=== PATIENT | male | born 1965 | race Caucasian/White ===

== ENCOUNTER 2018-01-31 13:31 | Observation (INO) ==
[2018-01-31] MEDS ORDERED: IOPAMIDOL 100 ML BOTTLE IV ONE (13:32)
[2018-01-31] MEDS ORDERED: PANTOPRAZOLE 40 MG VIAL IV ONE (14:03)
[2018-01-31] MEDS ORDERED: 0.9 % SODIUM CHLORIDE 1,000 ML IV ONE (14:03)
[2018-01-31] MEDS ORDERED: 0.9 % SODIUM CHLORIDE 250 ML IV SCH ×2 (14:15→19:41)
[2018-01-31 15:20] LABS: ALT/SGPT 13 U/l (0-40); Albumin 4.4 gm/dL (3.2-5.2); Albumin/Globulin Ratio 1.9 (1.0-2.3); Alkaline Phosphatase 87 U/L (39-117); Blood Urea Nitrogen 16 mg/dl (6-20)
[2018-01-31 15:28] LABS: Ferritin 1.8 ng/ml (30-400)
[2018-01-31 15:36] LABS: Basophils # (Auto) 0 K/mcL (0.0-0.3); Basophils % (Auto) 0 % (0.0-2.0); Eosinophils # (Auto) 0.2 K/mcL (0.0-0.7); Eosinophils % (Auto) 3.3 % (0.0-7.0); Granulocytes % (Auto) 60.2 % (38.0-78.0); Lymphocytes # (Auto) 1.2 K/mcL (1.5-4.8); Lymphocytes % (Auto) 26.8 % (15.5-49.0); Mean Cell Volume 53.3 fL (80.0-100.0); Mean Corpuscular HGB Conc 28.3 g/dL (31.0-36.0); Mean Corpuscular Hemoglobin 15.1 pg (26.0-34.0); Monocytes # (Auto) 0.4 K/mcL (0.1-0.9); Monocytes % (Auto) 9.7 % (1.0-12.0); Platelet Count 380 K/mcL (140-440); RBC 3.67 M/mcL (4.50-5.90); Red Cell Distribution Width 22.4 % (11.5-14.5)
--- NOTE | 2018-01-31 18:04 | Emergency Department Note ---
General Adult HPI - General Chief complaint: Recheck/Abnormal Lab/Rx Stated complaint: Abnormal labs Time Seen by Provider: 01/31/18 13:38 Source: patient Mode of arrival: ambulatory Limitations: no limitations - History of Present Illness HPI Narrative: 53-year-old male who was sent over by the [facility] clinic for hemoglobin 6. He has had chronic iron deficiency anemia which he believes is from his hemorrhoids which are very active although he has not had any blood in his stool for about 3 -4 days. He is having some shortness of breath and dyspnea on exertion. Denies headache syncope or other symptoms though. He is very active. Denies melena. He has been taking quite a bit of ibuprofen for C-spine issues but chiropractic has been helping with that and he has been decreasing although he reports taking ibuprofen 3-4 times per day in recent weeks. Has had previous upper endoscopy and lower endoscopy with issues of strong gag reflex so difficulties with sedation. These were probably 10-15 years ago and at [facility] however the patient is unsure. - Related Data Home Medications Medication Instructions Recorded Confirmed Cyclobenzaprine [Flexeril] 10 mg PO TIDP PRN 01/31/18 01/31/18 Ibuprofen 800 mg PO TID 01/31/18 01/31/18 Allergies Allergy/AdvReac Type Severity Reaction Status Date / Time nabumetone [From Relafen] AdvReac Mild Gastrointestinal Verified 01/31/18 13:36 Upset Review of Systems All systems ED: reviewed and negative except as stated. Past Medical History - Past Medical History Attestation: Yes: The following information was validated with the patient. Medical history: Reports: kidney stones, other (Irritable bowel syndrome, hemorrhoids, iron deficiency anemia) Surgical history ED: Reports: other (Upper and lower endoscopy, thumb tip amputation) Family history: Reports: other (States multiple family members also have trouble with hemorrhoids) - Social History smoking status: Former smoker Alcohol use: Reports: Occasionally Physical Exam Normocephalic atraumatic. Conjunctive clear sclerae nonicteric. No nasal discharge or congestion oropharynx pink and moist. Posterior pharynx is clear. Neck is supple without lymphadenopathy or thyromegaly. Heart is regular rate and rhythm no murmur appreciated. Lungs are clear to auscultation bilaterally without wheezes rales rhonchi or respiratory distress. Abdomen soft nontender nondistended. No CVA tenderness peritoneal signs or guarding. No rigidity. Rectal exam shows circumferential external hemorrhoids not active. He has adequate rectal tone. I do not see a fissure. Internal digital exam is difficult to sort out whether there is an internal hemorrhoid as there is some stool in the vault . Exam was nontender. When he wiped there is pink blood on the tissue -Hemoccult positive . no pedal edema. +2 radial pulse. Alert oriented able to answer questions appropriately. Able to sit for my exam and walk around without any difficulty. Limitations: no limitations Course Vital Signs Temperature 98.1 F 01/31/18 13:32 Pulse Rate 95 H 01/31/18 13:32 Respiratory Rate 16 01/31/18 13:32 Blood Pressure 144/77 01/31/18 13:32 Pulse Oximetry (%) 99 01/31/18 13:32 Temperature 98.8 F 02/01/18 03:38 Pulse Rate 70 02/01/18 08:17 Respiratory Rate 12 02/01/18 08:17 Blood Pressure 130/83 02/01/18 08:17 Pulse Oximetry (%) 100 02/01/18 08:17 Medical Decision Making - Lab Data Lab results reviewed: Yes I reviewed the patient's lab results. Result diagrams: 02/01/18 03:38 02/01/18 03:38 Lab Results 01/31/18 01/31/18 01/31/18 Range/Units 14:15 14:15 14:15 WBC 4.6 (4.5-11.0) K/mcL RBC 3.67 L (4.50-5.90) M/mcL Hgb 5.5 L* (13.5-16.5) g/dL Hct 19.5 L* (41.0-55.0) % POC Hct 20.0 L* (41.0-55.0) % MCV 53.3 L (80.0-100.0) fL MCH 15.1 L (26.0-34.0) pg MCHC 28.3 L (31.0-36.0) g/dL RDW 22.4 H (11.5-14.5) % Plt Count 380 (140-440) K/mcL MPV 8.2 (7.4-10.4) fL Gran % 60.2 (38.0-78.0) % Lymph % (Auto) 26.8 (15.5-49.0) % Coleman % (Auto) 9.7 (1.0-12.0) % Eos % (Auto) 3.3 (0.0-7.0) % Baso % (Auto) 0 (0.0-2.0) % Gran # 2.8 (1.8-8.0) K/mcL Lymph # (Auto) 1.2 L (1.5-4.8) K/mcL Coleman # (Auto) 0.4 (0.1-0.9) K/mcL Eos # (Auto) 0.2 (0.0-0.7) K/mcL Baso # (Auto) 0 (0.0-0.3) K/mcL Differential Comment Few nrbcs on scan POC PT 11.5 L (11.9-14.5) sec POC INR 1.0 (0.9-1.2) VBG Lactic Acid (0.5-2.2) mmol/L POC Sodium 139 (133-145) mmol/L Sodium 137 (133-145) mmol/L POC Potassium 3.5 (3.3-5.1) mmol/L Potassium 3.4 (3.3-5.1) mmol/L POC Chloride 103 (96-108) mmol/L Chloride 101 (96-108) mmol/L Carbon Dioxide 23 (22-30) mmol/L POC Total CO2 23 (22-30) mmol/L Anion Gap 13.0 (8-16) POC BUN 17 (6-20) mg/dl BUN 16 (6-20) mg/dl Creatinine 0.9 (0.7-1.2) mg/dl POC Creatinine 1.0 (0.7-1.2) mg/dl GFR Calculation 97 Glucose 96 (70-105) mg/dL POC Glucose 97 (70-105) mg/dL Calcium 8.5 L (8.6-10.4) mg/dl POC WB Ioniz Calcium 1.16 (1.16-1.32) mmol/L Ferritin 1.8 L (30-400) ng/ml Total Bilirubin 0.3 (0.0-1.0) mg/dL AST 16 (0-37) U/l ALT 13 (0-40) U/l Alkaline Phosphatase 87 (39-117) U/L Total Protein 6.7 (5.9-8.4) gm/dL Albumin 4.4 (3.2-5.2) gm/dL Globulin 2.3 (2.2-3.7) gm/dL Albumin/Globulin Ratio 1.9 (1.0-2.3) 01/31/18 Range/Units 14:15 WBC (4.5-11.0) K/mcL RBC (4.50-5.90) M/mcL Hgb (13.5-16.5) g/dL Hct (41.0-55.0) % POC Hct (41.0-55.0) % MCV (80.0-100.0) fL MCH (26.0-34.0) pg MCHC (31.0-36.0) g/dL RDW (11.5-14.5) % Plt Count (140-440) K/mcL MPV (7.4-10.4) fL Gran % (38.0-78.0) % Lymph % (Auto) (15.5-49.0) % Coleman % (Auto) (1.0-12.0) % Eos % (Auto) (0.0-7.0) % Baso % (Auto) (0.0-2.0) % Gran # (1.8-8.0) K/mcL Lymph # (Auto) (1.5-4.8) K/mcL Coleman # (Auto) (0.1-0.9) K/mcL Eos # (Auto) (0.0-0.7) K/mcL Baso # (Auto) (0.0-0.3) K/mcL Differential Comment POC PT (11.9-14.5) sec POC INR (0.9-1.2) VBG Lactic Acid 1.1 (0.5-2.2) mmol/L POC Sodium (133-145) mmol/L Sodium (133-145) mmol/L POC Potassium (3.3-5.1) mmol/L Potassium (3.3-5.1) mmol/L POC Chloride (96-108) mmol/L Chloride (96-108) mmol/L Carbon Dioxide (22-30) mmol/L POC Total CO2 (22-30) mmol/L Anion Gap (8-16) POC BUN (6-20) mg/dl BUN (6-20) mg/dl Creatinine (0.7-1.2) mg/dl POC Creatinine (0.7-1.2) mg/dl GFR Calculation Glucose (70-105) mg/dL POC Glucose (70-105) mg/dL Calcium (8.6-10.4) mg/dl POC WB Ioniz Calcium (1.16-1.32) mmol/L Ferritin (30-400) ng/ml Total Bilirubin (0.0-1.0) mg/dL AST (0-37) U/l ALT (0-40) U/l Alkaline Phosphatase (39-117) U/L Total Protein (5.9-8.4) gm/dL Albumin (3.2-5.2) gm/dL Globulin (2.2-3.7) gm/dL Albumin/Globulin Ratio (1.0-2.3) Celiac panel is ordered at the request of Dr. Downey results will be pending - Radiology Data Radiology results reviewed: Yes I reviewed the patient's radiology results. CTA of the abdomen pelvis was done for GI bleed. This was read as negative and no acute causes found for that. Disposition Pt seen by BLADE OPERATOR/PA only: No Clinical Impression: Lower GI bleed, Iron deficiency anemia due to chronic blood loss Hemorrhoids Qualifiers: Hemorrhoid type: unspecified Qualified Code(s): K64.9 - Unspecified hemorrhoids Summary: After initial exam and interview workup was ordered with laboratory and CT scan. IV fluids started along with Protonix Laboratory showed hemoglobin of 5.5 and so 6 units of packed red blood cells are ordered. 4 to give and 2 to hold. Transfusion initiated Discussed the situation with Dr. Downey, flat bed knitter, who agreed to consult on the patient in the morning-recommended a celiac panel which is ordered. Plan for upper endoscopy in the morning I then discussed the situation with Dr. Ursula Sanchez the hospitalist who agreed to accept patient in transfer for further care Disposition: Xfer As Inpt ([facility]) Condition: Serious
--- NOTE | 2018-01-31 18:08 | Cat Scan Report ---
CLINICAL INFORMATION: Low hemoglobin evaluate for GI bleed COMPARISON: None. TECHNIQUE: Following negative volumen contrast, 100 cc of Isovue-370 were injected intravenously, and 20 and 65 seconds later, 0.625 mm helical slices were obtained from the mid heart through the subtrochanteric regions. Following reconstruction, 2.5 mm sagittal, coronal and axial reformatted images were processed and reviewed at bone, lung and soft tissue windows. Coronal MIP and VR images were obtained in both arterial and portal venous phases The exam was performed using radiation dose optimization techniques including, but not limited to, automated exposure control, adjustment of the mA and/or kV according to patient size and use of iterative reconstruction technique. FINDINGS: Abdominal aorta is normal in contour and caliber with minimal scattered chronic plaque. The celiac, SMA and DOMINIC and branches are normal in contour and caliber and are well opacified. No evidence of angiodysplasia, tumor or other cause identified for account for GI blood loss. The renal, common iliac, external iliac and internal iliac arteries are all unremarkable. Lung bases show no abnormality - no effusion. The visualized heart is normal. Images through the abdomen show the gallbladder and bile ducts, liver, both adrenal glands, spleen and pancreas are normal. There are 3-4 nonobstructing stones inferior calyces of the left kidney ranging up to 5 mm. Right kidney is normal. There is no free air, free fluid or adenopathy. Images through the pelvis show urinary bladder, prostate and seminal vesicles are normal. Stomach, small and large bowel are normal with exception of a few sigmoid diverticuli. Bone windows show no osseous abnormality IMPRESSION: 1. No pathology identified to account for GI blood loss. 2. 3-4 nonobstructing stones, ranging up to 5 mm, in the mid and inferior calyces of the left kidney. Interpreted and Authenticated by: Dusty Lee 01/31/18
[2018-01-31] MEDS: 0.9 % SODIUM CHLORIDE 10 ML SYRINGE IV SCH (19:05)
--- NOTE | 2018-01-31 19:06 | Internal Med History&Physical ---
Medical - H&P: HPI Patient information: Note initiated : 01/31/18 at 7:04 pm Service Date, if different from initiated Date: [] Patient: Pierce Doll 53 y/o M admitted on for Abnormal labs. Chief complaint: Abnormal labs/Critical anemia History of present illness: The patient's 53-year-old male who presents due to abnormal labs. He established with a new primary care provider yesterday, was found to have a hemoglobin of 6.4 on labs. Instructed the emergency department. Upon arrival at this facility, his hemoglobin was 5.5. The patient states she was diagnosed with anemia about 15 years ago. He had been on iron supplementation the past, but has not taken iron supplements for many years.He's had colonoscopy twice as well as EGD, the only findings he was reported was hemorrhoids. Patient does have significant external hemorrhoids with frequent bleeding. He would estimate he has hemorrhoidal bleeding from 2/3-3/4 of his bowel movements. At times he consulted on the commode for 15-20 minutes with ongoing blood loss after a bowel movement. That usually tapers off and stops, then resume after further BM's. At times he will have bowel movements without associated hemorrhoidal bleeding. Patient also has been using nonsteroidals for neck pain. He uses ibuprofen on a daily basis. Recently he was using at up to 3 times a day at a dose of 800 mg. He denies any abdominal pain, pain with meals, nausea, vomiting, hematemesis. He also denies any melena. Stools are brown, bleeding occurs after bowel movements. No history of GI upset after eating except for occasional heartburn, which causes a burning sensation in the upper chest/back of the throat. Occasionally gets an acidic taste in the posterior pharynx. Patient has noted recently some dyspnea with exertion, felt is related to decreased cardiovascular fitness. However he is generally quite active, working in a mill, hunting and camping during the king. He does not experience any chest pain or tightness with activity. No history of coronary disease. No history of cerebrovascular disease. No history of kidney disease except for nephrolithiasis. No history of asthma, emphysema or other lung problems. No history of thyroid disease, no history of diabetes, no history of abnormal clotting disorders. Patient's being hospitalized, and continue transfusion, will be evaluated by gastroenterology tomorrow. 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 Smoking status: Former smoker (Quit 16 months ago) Alcohol use: occasionally Medical - H&P: Meds Home Medications Medication Instructions Recorded Confirmed Type Ibuprofen 800 mg PO TID 01/31/18 01/31/18 History Allergies Allergy/AdvReac Type Severity Reaction Status Date / Time nabumetone [From Relafen] AdvReac Mild Gastrointestinal Verified 01/31/18 13:36 Upset Medical - H&P: Exam - Constitutional Vitals: Temp Pulse Resp BP Pulse Ox 98.1 F 70 18 138/94 98 01/31/18 13:32 01/31/18 18:31 01/31/18 18:31 01/31/18 18:31 01/31/18 18:31 General appearance: average body habitus, cooperative, no acute distress - Head Head exam: Present: atraumatic, normal inspection, normocephalic - Eye Eye exam: Present: normal appearance, PERRL. Absent: conjunctival injection - ENT ENT exam: Present: mucous membranes moist, normal oropharynx - Neck Neck exam: Present: full ROM. Absent: lymphadenopathy, meningismus, thyromegaly - Respiratory Respiratory exam: Present: normal respiratory exam. Absent: accessory muscle use, rales, rhonchi, wheezes - Cardiovascular Cardiovascular exam: Present: normal rate and rhythm. Absent: diastolic murmur , rubs, systolic murmur - Expanded Cardiovascular Exam Peripheral pulses: 2+: carotid (L), carotid (R) - GI/Abdominal GI/Abdominal exam: Present: soft, hyperactive bowel sounds (s/p PO contrast). Absent: distended, guarding, organomegaly, rebound, tenderness - Rectal Rectal exam: Present: hemorrhoids (external, as per ED exam) - Extremities Exam Extremities exam: Present: full ROM, normal inspection. Absent: calf tenderness , joint swelling, pedal edema - Neurological Exam Neurological exam: Present: alert, CN II-XII intact, oriented X3. Absent: motor sensory deficit - Psychiatric Psychiatric exam: Present: normal affect, normal mood - Skin Skin exam: Present: dry, normal color, warm. Absent: diaphoretic, mottled, pallor Medical - H&P: Reslt - Labs CBC & Chem 7: 01/31/18 14:15 01/31/18 14:15 Labs: Short CBC 01/31/18 Range/Units 14:15 WBC 4.6 (4.5-11.0) K/mcL Hgb 5.5 L* (13.5-16.5) g/dL Hct 19.5 L* (41.0-55.0) % Plt Count 380 (140-440) K/mcL BMP 01/31/18 14:15 Sodium 137 Potassium 3.4 Chloride 101 Carbon Dioxide 23 BUN 16 Creatinine 0.9 Glucose 96 Calcium 8.5 L Liver Function 01/31/18 Range/Units 14:15 Total Bilirubin 0.3 (0.0-1.0) mg/dL AST 16 (0-37) U/l ALT 13 (0-40) U/l Alkaline Phosphatase 87 (39-117) U/L Albumin 4.4 (3.2-5.2) gm/dL - Impressions CTAP with contrast, reviewed IMPRESSION: 1. No pathology identified to account for GI blood loss. 2. 3-4 nonobstructing stones, ranging up to 5 mm, in the mid and inferior calyces of the left kidney. Medical - H&P: A/P (1) Iron deficiency anemia due to chronic blood loss Current visit: Yes Status: Acute - Narrative A/P Narrative: 53-year-old male with a history of iron deficiency anemia, not on iron supplementation, with some ongoing blood loss due to hemorrhoids presents with critical anemia. Iron deficiency anemia. Ferritin is low, MCV is in the 50s, consistent iron deficiency. Differential includes blood loss anemia with ongoing blood loss from hemorrhoids, though this is a significantly low hemoglobin to be associated with hemorrhoidal bleeding. Patient does use nonsteroidals, he could be having occult upper GI bleeding from gastritis/peptic ulcer disease without darcy melena over time that may have also produced iron deficiency anemia. Chronic blood loss due to other lesions also remain a possibility, as do malabsorption syndromes. He's apparently had negative EGD as well as colonoscopy 2 in the past (except for the findings of hemorrhoids). He is tolerating his anemia well, pulse and blood pressure are normal. He has good exercise tolerance in spite of hemoglobin now in the 5 range, though he has been experiencing some dyspnea on exertion. Plan: Hospitalized observation Transfuse 4 units of packed cells, recheck, consider further transfusion depending upon response GI consultation, Dr. Abreu called by the emergency department, will see the patient tomorrow, as of now plans EGD Celiac panel has been ordered Regular diet this evening, nothing by mouth after midnight PPI, given his nonsteroidal use We will attempt to obtain old records on prior endoscopies from [facility] Prophylaxis: No DVT prophylaxis needed, he is ambulatory, risk score is 1. Patient will be on Protonix until he undergoes endoscopy. CODE STATUS full code.
[2018-01-31] MEDS ORDERED: ACETAMINOPHEN 325 MG TABLET PO PRN (19:41)
[2018-01-31] MEDS ORDERED: ONDANSETRON 4 MG/2 ML VIAL IV PRN (19:41)
[2018-02-01] MEDS: PANTOPRAZOLE 40 MG VIAL IV SCH ×2 (00:56→10:06)
[2018-02-01 05:36] LABS: Blood Urea Nitrogen 10 mg/dl (6-20)
[2018-02-01 05:53] LABS: Basophils # (Auto) 0 K/mcL (0.0-0.3); Basophils % (Auto) 0 % (0.0-2.0); Eosinophils # (Auto) 0.3 K/mcL (0.0-0.7); Eosinophils % (Auto) 5.1 % (0.0-7.0); Granulocytes % (Auto) 63.4 % (38.0-78.0); Lymphocytes # (Auto) 1.1 K/mcL (1.5-4.8); Lymphocytes % (Auto) 21.9 % (15.5-49.0); Mean Corpuscular HGB Conc 30.3 g/dL (31.0-36.0); Mean Corpuscular Hemoglobin 19.4 pg (26.0-34.0); Monocytes # (Auto) 0.5 K/mcL (0.1-0.9); Monocytes % (Auto) 9.6 % (1.0-12.0); Platelet Count 334 K/mcL (140-440); Red Cell Distribution Width 34.5 % (11.5-14.5)
[2018-02-01] MEDS: 0.9 % SODIUM CHLORIDE 10 ML SYRINGE IV SCH ×2 (06:59→13:19)
[2018-02-01] MEDS ORDERED: KETAMINE 10 MG/ML ML IV PRN (07:17)
[2018-02-01] MEDS ORDERED: MIDAZOLAM 2 MG/2 ML VIAL ONE (07:27)
[2018-02-01] MEDS ORDERED: PROPOFOL 0 ML IV ONE (07:27)
[2018-02-01] MEDS ORDERED: PROPOFOL 20 ML IV ONE (07:28)
[2018-02-01] MEDS ORDERED: MIDAZOLAM 2 MG/2 ML VIAL IV SCH (07:30)
[2018-02-01] MEDS ORDERED: PROPOFOL 200 MG/20 ML VIAL IV SCH (07:30)
[2018-02-01] MEDS ORDERED: IRON SUCROSE COMPLEX 400 MG in 0.9 % SODIUM CHLORIDE 250 ML IV ONE (10:00)
--- NOTE | 2018-02-01 13:53 | Discharge Summary ---
Medical - DS: Prov Patient information: Note initiated : 02/01/18 at 1:51 pm Service Date, if different from initiated Date: [] Patient: Pierce Doll 53 y/o M admitted on 01/31/18 for Abnormal labs. Chief Complaint: [] Date of admission: 01/31/18 19:28 Discharge date: 02/01/18 Primary care physician: Harriett Morales Admitting clinician: Ursula Richardson Consults: 01/31/18 17:57 Consult to Physician [CONS] Stat Comment: Consulting Provider: Dusty Abreu Reason For Exam: Physician to Consult 01/31/18 18:05 Consult to Physician [CONS] Stat Comment: Consulting Provider: Ursula Richardson Reason For Exam: Physician to Consult Discharging clinician: Ursula Richardson Medical - DS: Meds - Discharge Medications Active and Home Medications: Home Medications Cyclobenzaprine [Flexeril] 10 mg PO TIDP PRN 01/31/18 [History Confirmed Last Taken 01/30/18 21:00] Ibuprofen 800 mg PO TID 01/31/18 [History Confirmed 01/31/18 Last Taken 18:00] Medical - DS: Hosp Hospital course: 01/31 The patient's 53-year-old male who presents due to abnormal labs. He established with a new primary care provider yesterday, was found to have a hemoglobin of 6.4 on labs. Instructed the emergency department. Upon arrival at this facility, his hemoglobin was 5.5. The patient states she was diagnosed with anemia about 15 years ago. He had been on iron supplementation the past, but has not taken iron supplements for many years.He's had colonoscopy twice as well as EGD, the only findings he was reported was hemorrhoids. Patient does have significant external hemorrhoids with frequent bleeding. He would estimate he has hemorrhoidal bleeding from 2/3-3/4 of his bowel movements. At times he consulted on the commode for 15-20 minutes with ongoing blood loss after a bowel movement. That usually tapers off and stops, then resume after further BM's. At times he will have bowel movements without associated hemorrhoidal bleeding. Patient also has been using nonsteroidals for neck pain. He uses ibuprofen on a daily basis. Recently he was using at up to 3 times a day at a dose of 800 mg. He denies any abdominal pain, pain with meals, nausea, vomiting, hematemesis. He also denies any melena. Stools are brown, bleeding occurs after bowel movements. No history of GI upset after eating except for occasional heartburn, which causes a burning sensation in the upper chest/back of the throat. Occasionally gets an acidic taste in the posterior pharynx. Patient has noted recently some dyspnea with exertion, felt is related to decreased cardiovascular fitness. However he is generally quite active, working in a mill, hunting and camping during the king. He does not experience any chest pain or tightness with activity. No history of coronary disease. No history of cerebrovascular disease. No history of kidney disease except for nephrolithiasis. No history of asthma, emphysema or other lung problems. No history of thyroid disease, no history of diabetes, no history of abnormal clotting disorders. Patient's being hospitalized, and continue transfusion, will be evaluated by gastroenterology tomorrow. 02/01 He received 4 units of packed red blood cells overnight and his hemoglobin arose to 8.3. He tolerated the transfusions well. Patient underwent EGD by Dr. Abreu on the morning of discharge. No significant findings were observed. Following endoscopy, he subsequently received Venofer, 400 mg intravenously as iron supplementation. Dr. Abreu plans to perform colonoscopy within the next week to evaluate for lesions other than hemorrhoids. If no further lesions are found, this will be followed by capsule endoscopy, and if negative, he will be referred for surgical treatment of his hemorrhoids. It may be that external hemorrhoids are the cause of his severe iron deficiency anemia. By the afternoon of discharge, the patient received blood, and received intravenous iron, had had EGD, all without complications. He was discharged to home. Discharge diagnosis: Severe iron deficiency anemia due to chronic blood loss Medical - DS: Exam - Constitutional Vitals: Vital Signs Temp Pulse Pulse Resp BP BP Pulse Ox 02/01/18 11:46 98.9 F 16 123/70 99 02/01/18 11:22 123/70 02/01/18 09:46 117/90 02/01/18 09:31 109/68 02/01/18 09:16 108/73 02/01/18 09:01 109/63 02/01/18 08:46 104/56 02/01/18 08:33 61 111/57 96 02/01/18 08:17 70 12 130/83 100 02/01/18 07:20 69 14 114/57 98 02/01/18 03:38 98.8 F 59 L 20 121/66 97 02/01/18 01:09 112/71 02/01/18 00:10 99.3 F H 18 112/71 96 01/31/18 23:38 99.9 F H 74 18 124/70 97 01/31/18 23:35 99.9 F H 18 124/70 98 01/31/18 23:25 99.7 F H 18 126/68 99 01/31/18 23:09 80 126/68 98 01/31/18 21:19 98 01/31/18 21:01 72 131/91 98 01/31/18 21:00 99.6 F H 18 131/91 99 01/31/18 20:53 73 141/77 98 01/31/18 20:50 99.2 F H 18 141/77 99 01/31/18 20:35 132/84 01/31/18 20:30 99.7 F H 18 132/84 99 01/31/18 19:49 98.8 F 72 16 129/88 98 01/31/18 19:42 71 129/88 99 01/31/18 19:41 98.8 F 16 129/88 98 01/31/18 19:30 98.1 F 67 16 142/86 99 01/31/18 19:01 67 16 142/86 99 01/31/18 18:31 70 18 138/94 98 01/31/18 18:26 87 19 149/97 100 01/31/18 18:10 70 19 130/81 99 01/31/18 18:01 71 18 135/88 98 01/31/18 17:31 74 16 131/81 99 01/31/18 17:17 71 14 100 01/31/18 17:01 68 15 141/80 100 01/31/18 16:50 65 20 151/82 99 01/31/18 16:34 75 18 128/88 100 01/31/18 14:55 77 16 100 01/31/18 14:36 82 21 98 01/31/18 14:31 80 14 120/70 98 01/31/18 14:08 88 143/84 98 General: A bit drowsy after endoscopy Chest: Clear Cardiovascular: Regular, no edema Abdomen: Soft, nontender, active bowel sounds Medical - DS: Data Procedures and tests throughout hospitalization: EGD by Dr. Salas on 02/01/18 without source of blood loss identified. Labs on day of discharge: Labs from last 24 hours 02/01/18 02/01/18 01/31/18 03:38 03:38 14:15 WBC 5.2 RBC 4.30 L Hgb 8.3 L Hct 27.5 L POC Hct MCV 64.0 L MCH 19.4 L MCHC 30.3 L RDW 34.5 H Plt Count 334 MPV 8.3 Gran % 63.4 Lymph % (Auto) 21.9 [place] % (Auto) 9.6 Eos % (Auto) 5.1 Baso % (Auto) 0 Gran # 3.3 Lymph # (Auto) 1.1 L [place] # (Auto) 0.5 Eos # (Auto) 0.3 Baso # (Auto) 0 Differential Comment POC PT POC INR VBG Lactic Acid POC Sodium Sodium 140 POC Potassium Potassium 3.8 POC Chloride Chloride 105 Carbon Dioxide 23 POC Total CO2 Anion Gap 12.0 POC BUN BUN 10 Creatinine 0.9 POC Creatinine GFR Calculation 97 Glucose 85 POC Glucose Calcium 8.0 L POC WB Ioniz Calcium Ferritin Total Bilirubin AST ALT Alkaline Phosphatase Total Protein Albumin Globulin Albumin/Globulin Ratio IgA Pending Endomysial Ab Titer Pending Endomysial IgA Ab Pending Tiss Transglutamin IgG Pending Tiss Transglutamin IgA Pending Celiac Disease Interp Pending 01/31/18 01/31/18 01/31/18 14:15 14:15 14:15 WBC RBC Hgb Hct POC Hct 20.0 L* MCV MCH MCHC RDW Plt Count MPV Gran % Lymph % (Auto) [place] % (Auto) Eos % (Auto) Baso % (Auto) Gran # Lymph # (Auto) [place] # (Auto) Eos # (Auto) Baso # (Auto) Differential Comment POC PT 11.5 L POC INR 1.0 VBG Lactic Acid 1.1 POC Sodium 139 Sodium 137 POC Potassium 3.5 Potassium 3.4 POC Chloride 103 Chloride 101 Carbon Dioxide 23 POC Total CO2 23 Anion Gap 13.0 POC BUN 17 BUN 16 Creatinine 0.9 POC Creatinine 1.0 GFR Calculation 97 Glucose 96 POC Glucose 97 Calcium 8.5 L POC WB Ioniz Calcium 1.16 Ferritin 1.8 L Total Bilirubin 0.3 AST 16 ALT 13 Alkaline Phosphatase 87 Total Protein 6.7 Albumin 4.4 Globulin 2.3 Albumin/Globulin Ratio 1.9 IgA Endomysial Ab Titer Endomysial IgA Ab Tiss Transglutamin IgG Tiss Transglutamin IgA Celiac Disease Interp 01/31/18 14:15 WBC 4.6 RBC 3.67 L Hgb 5.5 L* Hct 19.5 L* POC Hct MCV 53.3 L MCH 15.1 L MCHC 28.3 L RDW 22.4 H Plt Count 380 MPV 8.2 Gran % 60.2 Lymph % (Auto) 26.8 [place] % (Auto) 9.7 Eos % (Auto) 3.3 Baso % (Auto) 0 Gran # 2.8 Lymph # (Auto) 1.2 L [place] # (Auto) 0.4 Eos # (Auto) 0.2 Baso # (Auto) 0 Differential Comment Few nrbcs on scan POC PT POC INR VBG Lactic Acid POC Sodium Sodium POC Potassium Potassium POC Chloride Chloride Carbon Dioxide POC Total CO2 Anion Gap POC BUN BUN Creatinine POC Creatinine GFR Calculation Glucose POC Glucose Calcium POC WB Ioniz Calcium Ferritin Total Bilirubin AST ALT Alkaline Phosphatase Total Protein Albumin Globulin Albumin/Globulin Ratio IgA Endomysial Ab Titer Endomysial IgA Ab Tiss Transglutamin IgG Tiss Transglutamin IgA Celiac Disease Interp - Impressions CTA of abdomen and pelvis IMPRESSION: 1. No pathology identified to account for GI blood loss. 2. 3-4 nonobstructing stones, ranging up to 5 mm, in the mid and inferior calyces of the left kidney. Medical - DS: A/P - Patient/Caregiver Discharge Instructions Activity: increase activity as tolerated Diet: Regular Diet Additional Instructions: Call Dr. Abreu's office tomorrow, 02/02, to arrange colonoscopy. - Problem Maintenance (1) Iron deficiency anemia due to chronic blood loss Status: Acute - Follow up Plan Follow up with: Harriett Morales ARNP [Primary Care Provider] - Disposition: Home, Self-Care Prognosis: Good Rehab Potential: Good Overall status at discharge: patient is back to baseline Medical - DS: Qual - VTE Deep Vein Thrombosis/Pulmonary Embolism Present on Admission: Yes
--- NOTE | 2018-02-02 08:23 | Operative Note ---
DATE OF OPERATION: 02/01/2018 COMPUTER EQUIPMENT INSTALLER AND MEDICAL IMAGING TECHNOLOGIST: Dusty Abreu M.D. ANESTHETIC USED: Propofol 150 mg IV and Versed 2 mg IV. PREOPERATIVE DIAGNOSIS: The patient has presented to the emergency room at the direction of his PCP because on 01/30/2018 he had a markedly low hemoglobin of only 5.5. His MCV was only 53. The patient does have a longstanding history, apparently for 8 or 10 years he tells me, of iron deficiency anemia. He recalls maybe 8 [address] Montelongo had performed colonoscopies on two occasions and told the patient that he had hemorrhoids that he intended to band but somehow never got around to that being done. The patient also recalls a study where he had a tube placed in his nose and then had x-rays taken of his intestines. I believe he is describing a small bowel enteroclysis, although I will need to review records to see whether this is the case or not. The patient denies any recall of an actual gastrointestinal upper GI endoscopy. I find it hard to believe that Dr. Montelongo would not have done that for iron deficiency anemia, but again I will have to check the records. In any event, the patient was supposed to be on iron but has been noncompliant with that in the past. He does refer to the hemorrhoids as an ongoing source of bleeding. In fact, he says that the hemorrhoids can " blood, and they do this off and on over the years. The patient is on no medications other than using ibuprofen for neck pain recently. No prescription medications. Occasional alcohol. He stopped smoking a half pack to one pack per day about a year and a half ago. POSTOPERATIVE DIAGNOSIS: Normal EGD with biopsies pending of the duodenum to rule out celiac disease. DESCRIPTION OF PROCEDURE: Prior to the procedure, the patient provided his own informed consent. The patient was evaluated and considered medically fit for endoscopy. With the patient in the left lateral decubitus position, a gastroscope was advanced via the mouth to the esophagus under direct vision. The esophagus appears normal throughout its length without ulcer, stricture, mass, hiatal hernia, varices or Viramontes's esophagus. The stomach was endoscopically normal, including retroflexed view. The duodenum was normal to the third portion. Biopsies x4 were obtained from the second portion of the duodenum to rule out celiac disease, although the mucosa appears normal. COMPLICATIONS: None immediate. RECOMMENDATIONS AND FOLLOWUP: I am going to recommend the patient undergo a colonoscopy as an outpatient, hopefully within one week. If the colonoscopy is negative, then I will follow it immediately on the same day by placement of a pill camera to examine the small intestine. If in fact the colonoscopy is negative as previously other than hemorrhoids, and if the pill camera is nonrevealing, and if the biopsies obtained for celiac are negative, then I will recommend referral to a surgeon for definitive treatment of the ongoing intermittent bleeding hemorrhoids since they may be the cause of his severe iron deficiency anemia. I agree with the transfusion as administered last night here at the hospital. [email or web address] Job ID: [id number] Doc ID: [id number] Dusty MORALES
--- NOTE | 2018-02-03 10:57 | Surgical Pathology Report ---
HISTOLOGY SPECIMEN MICROSCOPIC DIAGNOSIS SMALL BOWEL, DUODENUM, BIOPSY: -- DUODENAL MUCOSA WITH INTACT VILLOUS ARCHITECTURE AND NO INCREASE IN INTRAEPITHELIAL LYMPHOCYTES. -- NEGATIVE FOR GASTRIC METAPLASIA (ALCIAN BLUE/PAS STAIN WITH ADEQUATE TECHNICAL CONTROL). (RLF:ravenf) PROCEDURAL IMPRESSION Rule out celiac. GROSS DESCRIPTION Received in formalin labeled duodenal biopsy, are three marie tissue fragments 0.2 to 0.7 cm. Totally submitted - one cassette. (STS:sln) Electronically Signed by: Cydney Donald M.D.
== END 2018-02-01 14:30 | disposition home or self-care (01) ==
LOC: ED 13:31 → ICU 13:31
PROVIDERS: ADMIT Internal Medicine; ATTEND Internal Medicine